=== PATIENT | female | born 1975 | race Caucasian/White ===

== ENCOUNTER → 2017-01-11 | Outpatient (REF) | payer OTHER | LOC: M SFHCWAGY 10:54 | PROVIDERS: ATTEND Nurse Practitioner Family | DX: Z12.4 Encounter for screening for malignant neoplasm of cervix (principal) ==

== ENCOUNTER → 2017-01-11 | Outpatient (CLI) | payer OTHER ==
--- NOTE | 2017-01-11 12:05 | REPMRS ---
Patient History The patient states she had a clinical breast exam in 12/2016. Family history of breast cancer in maternal grandmother at age 50 or over, ovarian cancer in maternal grandmother at age 50 or over, and colorectal cancer in maternal grandmother at age 50 or over. Taking hormonal contraceptives for 15 years. Digital Woman Screen Mammo: January 11, 2017 - Exam #: [id number] Bilateral CC and MLO view(s) were taken. Technologist: Shaneka Johnson, Technologist Prior study comparison: December 09, 2015, digital woman screen mammo performed at [facility]. October 03, 2014, digital woman screen mammo performed at [facility]. FINDINGS: There are scattered fibroglandular densities. There has been no change in the appearance of the mammogram from the prior studies. There is a mild amount of residual fibroglandular tissue which is fairly symmetric. There is no interval development of dominant mass, architectural distortion, or clustered microcalcification suggestive of malignancy. ASSESSMENT: BI-RADS/ACR category 1 mammogram. Negative. Recommendation Routine screening mammogram in 1 year (for women over age 40). This mammogram was interpreted with the aid of an FDA-approved computer-aided dectection system. Electronically Signed By: Gibson Mancera MD 01/11/17 5939
== END ==
LOC: M WHC 10:35
PROVIDERS: ATTEND Nurse Practitioner Family
DX: Z12.31 Encounter for screening mammogram for malignant neoplasm of breast (principal); Z80.3 Family history of malignant neoplasm of breast; Z79.3 Long term (current) use of hormonal contraceptives

== ENCOUNTER 2017-06-12 10:13 | Emergency (ER) | payer OTHER ==
[~2017-06-12] VITALS: Ht 170.2 cm; Wt 108.6 kg
[2017-06-12 10:14] VITALS: BP 129/74
[2017-06-12] MEDS ORDERED: NORT0.5T2 (10:26)
[2017-06-12] MEDS ORDERED: CLIN150C14 (10:26)
[2017-06-12] MEDS ORDERED: PROBCAP14 (10:26)
[2017-06-12] MEDS ORDERED: BACT800T5 PO (10:26)
== END 2017-06-12 11:29 | disposition home or self-care (01) ==
LOC: M ED 10:13
DX: L03.115 Cellulitis of right lower limb (principal); Z79.899 Other long term (current) drug therapy

== ENCOUNTER → 2018-02-03 | Outpatient (CLI) | payer OTHER | LOC: M WHC 13:19 | DX: Z12.31 Encounter for screening mammogram for malignant neoplasm of breast (principal); Z92.0 Personal history of contraception | CPT/HCPCS: 77067 ==

== ENCOUNTER → 2018-02-03 | Outpatient (REF) | payer OTHER | LOC: M SFHCWAGY 13:22 | DX: Z12.4 Encounter for screening for malignant neoplasm of cervix (principal) | CPT/HCPCS: G0123 ==

== ENCOUNTER → 2019-03-13 | Outpatient (CLI) | payer OTHER ==
[~2019-03-13] MED LIST: BACT800T5 PO; CLIN150C14; NORT0.5T2; PROBCAP14
--- NOTE | 2019-03-13 14:14 | REPMRS ---
Patient History The patient states she had a clinical breast exam in 02/2019. Family history of breast cancer at age 50 or over , ovarian cancer at age 50 or over , and colorectal cancer at age 50 or over in maternal grandmother. Taking hormonal contraceptives for 17 years. Digital Woman Screen Mammo: March 13, 2019 - Exam #: [id number] Bilateral CC and MLO view(s) were taken. Technologist: Zamzam Maldonado, Technologist Prior study comparison: February 03, 2018, digital woman screen mammo performed at [facility]. January 11, 2017, digital woman screen mammo performed at [facility]. December 09, 2015, digital woman screen mammo performed at [facility]. FINDINGS: There are scattered fibroglandular densities. There has been no change in the appearance of the mammogram from the prior studies. There is a mild amount of scattered fibroglandular density which is fairly symmetric. There is no interval development of dominant mass, architectural distortion, or clustered microcalcification suggestive of malignancy. 3-D tomosynthesis shows no additional findings. Assessment: BI-RADS/ACR category 1 mammogram. Negative Mammogram. Recommendation Routine screening mammogram of both breasts in 1 year (for women over age 40). This patient's Lifetime Breast Cancer RIsk is estimated at 15.0 %. This mammogram was interpreted with the aid of an FDA-approved computer-aided dectection system. Electronically Signed By: Yoandy Encarnacion MD 03/13/19 [id number]
== END ==
LOC: M WHC 11:35
PROVIDERS: ATTEND Nurse Practitioner Family
DX: Z12.31 Encounter for screening mammogram for malignant neoplasm of breast (principal); Z79.3 Long term (current) use of hormonal contraceptives

== ENCOUNTER → 2019-03-13 | Outpatient (REF) | payer OTHER | LOC: M SFHCWAGY 11:56 | PROVIDERS: ATTEND Nurse Practitioner Family | DX: Z12.4 Encounter for screening for malignant neoplasm of cervix (principal) | CPT/HCPCS: 87624; G0123 ==

== ENCOUNTER → 2020-06-13 | Outpatient (REF) | payer BC | LOC: M SFHCWAGY 09:49 | PROVIDERS: ATTEND Nurse Practitioner Family | DX: Z12.4 Encounter for screening for malignant neoplasm of cervix (principal) ==

== ENCOUNTER → 2020-06-13 | Outpatient (CLI) | payer BC ==
--- NOTE | 2020-06-13 16:46 | REPMRS ---
Patient History The patient states she had a clinical breast exam in May 2020. Family history of breast cancer at age 50 or over , ovarian cancer at age 50 or over , and colorectal cancer at age 50 or over in maternal grandmother. Taking hormonal contraceptives for 17 years. 3D TOMOSYNTHESIS WAS PERFORMED. [facility] 14.8%. VOLPARA DENSITY A. Digital Woman Screen Mammo: June 13, 2020 - Exam #: [id number] Bilateral CC and MLO view(s) were taken. Technologist: Yee Reese, Technologist Prior study comparison: March 13, 2019, bilateral digital woman screen mammo performed at [facility]. February 03, 2018, digital woman screen mammo performed at [facility]. FINDINGS: There are scattered fibroglandular densities. There has been no change in the appearance of the mammogram from the prior studies. There is a mild amount of residual fibroglandular tissue which is fairly symmetric. There is no interval development of dominant mass, architectural distortion, or clustered microcalcification suggestive of malignancy. Assessment: BI-RADS/ACR category 1 mammogram. Negative Mammogram. Recommendation Routine screening mammogram in 1 year (for women over age 40). This mammogram was interpreted with the aid of an FDA-approved computer-aided dectection system. Electronically Signed By: Gibson Mancera MD 06/13/20 [id number]
== END ==
LOC: M WHC 15:39
PROVIDERS: ATTEND Nurse Practitioner Family
DX: Z12.31 Encounter for screening mammogram for malignant neoplasm of breast (principal); Z80.3 Family history of malignant neoplasm of breast; Z80.41 Family history of malignant neoplasm of ovary; Z92.0 Personal history of contraception

== ENCOUNTER → 2021-06-19 | Outpatient (REF) | payer BC ==
[~2021-06-19] MED LIST changes: -CLIN150C14; +CLIN150C15
== END ==
LOC: M SFHCWAGY 13:16
PROVIDERS: ATTEND Nurse Practitioner Women's Health
DX: Z12.4 Encounter for screening for malignant neoplasm of cervix (principal)

== ENCOUNTER → 2021-06-19 | Outpatient (CLI) | payer BC ==
--- NOTE | 2021-06-19 10:09 | REPMRS ---
Patient History The patient states she had a clinical breast exam in May 2021. Family history of breast cancer at age 50 or over , ovarian cancer at age 50 or over , and colorectal cancer at age 50 or over in maternal grandmother. Taking hormonal contraceptives for 18 years. 30 lb intentional weight loss. Pt denied . Patient states no breast complaints today. Patient has signed MRS History Sheet. Digital Woman Screen Mammo: June 19, 2021 - Exam #: [id number] Bilateral CC and MLO view(s) were taken. Technologist: RT Shanika Prior study comparison: June 13, 2020, bilateral digital woman screen mammo performed at [facility]. March 13, 2019, bilateral digital woman screen mammo performed at [facility] [place]. February 03, 2018, digital woman screen mammo performed at [facility] [place]. FINDINGS: There are scattered fibroglandular densities. The Volpara volumetric breast density category is:B. There has been no change in the appearance of the mammogram from the prior studies. There is a mild amount of scattered fibroglandular density which is fairly symmetric. There is no interval development of dominant mass, architectural distortion, or grouped microcalcification suggestive of malignancy. 3-D tomosynthesis shows no additional findings. Assessment: BI-RADS/ACR category 1 mammogram. Negative Mammogram. Recommendation Routine screening mammogram of both breasts in 1 year (for women over age 40). This patient's [facility] Lifetime Breast Cancer Risk is estimated at 14.6 %. This mammogram was interpreted with the aid of an FDA-approved computer-aided dectection system. Electronically Signed By: Yoandy Encarnacion MD 06/19/21 [id number]
== END ==
LOC: M WHC 09:02
PROVIDERS: ATTEND Nurse Practitioner Women's Health
DX: Z12.31 Encounter for screening mammogram for malignant neoplasm of breast (principal); Z80.3 Family history of malignant neoplasm of breast; Z80.41 Family history of malignant neoplasm of ovary; Z80.0 Family history of malignant neoplasm of digestive organs

== ENCOUNTER → 2022-10-30 | Outpatient (REF) | payer BC ==
[~2022-10-30] MED LIST changes: -CLIN150C15; +CLIN150C17
== END ==
LOC: M PLALAB 12:03
PROVIDERS: ATTEND Nurse Practitioner Family
DX: Z12.4 Encounter for screening for malignant neoplasm of cervix (principal); R87.610 Atypical squamous cells of undetermined significance on cytologic smear of cervix (ASC-US)
CPT/HCPCS: 87624; G0123

== ENCOUNTER → 2022-10-30 | Outpatient (CLI) | payer BC | LOC: M WHC 07:59 | PROVIDERS: ATTEND Nurse Practitioner Family | DX: Z12.31 Encounter for screening mammogram for malignant neoplasm of breast (principal) ==

== ENCOUNTER → 2024-02-11 | Outpatient (REF) | payer BC | LOC: M SFHCWAGY 17:39 | PROVIDERS: ATTEND Nurse Practitioner Family | DX: Z12.4 Encounter for screening for malignant neoplasm of cervix (principal) | CPT/HCPCS: 87624; G0123 ==

== ENCOUNTER → 2024-02-11 | Outpatient (CLI) | payer BC | LOC: M WHC 15:13 | PROVIDERS: ATTEND Nurse Practitioner Family | DX: Z12.31 Encounter for screening mammogram for malignant neoplasm of breast (principal) ==

== ENCOUNTER → 2025-06-06 | Outpatient (REF) | payer BC ==
[2025-06-10 00:52] LABS: HPV APTIMA Not Detected (Not Detected)
== END ==
LOC: M PLALAB 14:35
PROVIDERS: ATTEND Advanced Practice Midwife
DX: Z12.4 Encounter for screening for malignant neoplasm of cervix (principal)
CPT/HCPCS: 87624; G0123